=== PATIENT | female | born 1995 | race Caucasian/White ===

== ENCOUNTER 2016-06-21 00:55 | Emergency (ER) | payer SELFPAY ==
[2016-06-21 03:29] VITALS: BP 96/69
== END 2016-06-21 03:29 | disposition home or self-care (01) ==
LOC: ED 00:55
DX: R10.9 Unspecified abdominal pain (principal)
CPT/HCPCS: J0500; Q0092; Q0162

== ENCOUNTER 2017-07-31 19:37 | Emergency (ER) | payer OTHER ==
[~2017-07-31] VITALS: Ht 152.4 cm; Wt 69.8 kg
[2017-07-31 19:40] VITALS: Ht 152.4 cm; Wt 69.8 kg
[2017-07-31 23:29] VITALS: BP 99/60
== END 2017-07-31 23:29 | disposition home or self-care (01) ==
LOC: ED 19:37
DX: S46.911A Strain of unspecified muscle, fascia and tendon at shoulder and upper arm level, right arm, initial encounter (principal); S16.1XXA Strain of muscle, fascia and tendon at neck level, initial encounter; S20.219A Contusion of unspecified front wall of thorax, initial encounter; Z88.6 Allergy status to analgesic agent; V49.9XXA Car occupant (driver) (passenger) injured in unspecified traffic accident, initial encounter; Y93.73 Activity, racquet and hand sports; Y92.89 Other specified places as the place of occurrence of the external cause; Y99.8 Other external cause status
CPT/HCPCS: J2270; Q0162

== ENCOUNTER 2019-04-24 00:22 | Emergency (ER) | payer OTHER ==
[~2019-04-24] VITALS: Ht 149.9 cm; Wt 67.6 kg
[2019-04-24 00:33] VITALS: Ht 149.9 cm; Wt 67.6 kg
[2019-04-24 01:31] LABS: BASOPHIL % 0.3 % (0-2); PLATELET COUNT 211 x10^3mcL (130-400); RED CELL DISTRIBUTION WIDTH 13.6 % (11.5-14.5)
[2019-04-24 02:35] LABS: microscopic required? YES; urine erythrocyte 3+ (NEGATIVE)
[2019-04-24 03:48] VITALS: BP 120/65
== END 2019-04-24 03:45 | disposition home or self-care (01) ==
LOC: ED 00:22
PROVIDERS: Emergency Medicine
DX: O20.0 Threatened abortion (principal); Z88.6 Allergy status to analgesic agent
CPT/HCPCS: 36415; Q0092